=== PATIENT | female | born 1980 | race Caucasian/White ===

== ENCOUNTER 2017-02-25 16:34 | Inpatient (IN) ==
[2017-02-27] MEDS ORDERED: TUBERSOL ID ONE ×2 (10:41→19:05)
[2017-02-27] MEDS: NICODERM PATCH TD SCH (11:35)
[2017-02-27 11:40] LABS: UR AMPHETAMINES QUAL PRESUMPTIVE POSITIVE (NONE DETECT); UR BARBITUATES QUAL NONE DETECTED (NONE DETECT); UR BENZODIAZEPIN QUAL NONE DETECTED (NONE DETECT); UR CANNABINOIDS QUAL NONE DETECTED (NONE DETECT); UR COCAINE QUAL NONE DETECTED (NONE DETECT); UR MDMA QUAL PRESUMPTIVE POSITIVE (NONE DETECT); UR METHADONE QUAL NONE DETECTED (NONE DETECT); UR METHAMPHETAMINE QUAL PRESUMPTIVE POSITIVE (NONE DETECT); UR OPIATES QUAL NONE DETECTED (NONE DETECT); UR OXYCODONE QUAL NONE DETECTED (NONE DETECT); UR PCP QUAL NONE DETECTED (NONE DETECT); UR TCA QUAL NONE DETECTED (NONE DETECT)
[2017-02-27 11:44] LABS: URINE SOURCE CLEAN CATCH
[2017-02-27 11:45] LABS: BILIRUBIN URINE NEGATIVE (NEGATIVE); BLOOD URINE 2+ (NEGATIVE); CLARITY SLIGHTLY CLOUDY (CLEAR); COLOR YELLOW; GLUCOSE URINE NEGATIVE (NEGATIVE); URINE EPITHELIAL CELLS >10 /HPF (<10); URINE WBC <10 /HPF (<10)
[2017-02-27 11:46] LABS: LEUKOCYTES URINE NEGATIVE (NEGATIVE); NITRITE URINE NEGATIVE (NEGATIVE); PROTEIN URINE TRACE mg/dL (NEGATIVE); URINE CULTURE PL NEEDED? YES; UROBILINOGEN URINE NORMAL
[2017-02-27] MEDS ORDERED: PNEUMOVAX 23 IM ONE (12:15)
[2017-02-27] MEDS ORDERED: MOTRIN PO PRN (19:05)
[2017-02-27] MEDS ORDERED: ROBAXIN PO PRN (19:05)
[2017-02-27] MEDS ORDERED: LIBRIUM PO PRN (19:05)
[2017-02-27] MEDS ORDERED: SENOKOT PO PRN (19:05)
[2017-02-27] MEDS ORDERED: BENTYL PO PRN (19:05)
[2017-02-27] MEDS ORDERED: MAALOX PLUS LIQUID PO PRN (19:05)
[2017-02-27] MEDS ORDERED: DULCOLAX PR PRN (19:05)
[2017-02-27] MEDS ORDERED: ZOFRAN IV PRN (19:05)
[2017-02-27] MEDS ORDERED: IMODIUM PO PRN (19:05)
[2017-02-27] MEDS ORDERED: TYLENOL PO PRN (19:05)
[2017-02-27] MEDS ORDERED: SALINE LOCK IV FLUID XX ONE (19:05)
[2017-02-27] MEDS ORDERED: PHENERGAN PO PRN (19:05)
[2017-02-27 19:30] LABS: MANUAL DIFF NEEDED? NO
[2017-02-27] MEDS: SUBOXONE 2 MG/0.5 MG SL SCH (19:51)
[2017-02-27 20:07] LABS: BASO% 0.4 % (0.0-0.8); EOS# 0.15 X1000 (0.0-0.7); EOS% 1.5 % (0.0-10.0); HEMATOCRIT 42.6 % (37.0-47.0); HEMOGLOBIN 14.2 g/dL (12.0-16.0); IMM GRAN# 0.04 X1000 (0.0-0.04); IMM GRAN% 0.4 % (0.0-0.5); LYMPH# 4.25 X1000 (1.2-3.4); LYMPH% 43.8 % (20.5-51.1); MCH 30.5 PG (27-31); MCHC 33.3 g/dL (33-37); MCV 91.6 FL (81-99); MONO# 1.01 X1000 (0.11-0.59); MONO% 10.4 % (1.7-9.3); NEUT% 43.5 % (42.2-75.2); PLT 269 X1000 (130-400); RBC 4.65 XMIL (4.2-5.4)
[2017-02-27 20:15] LABS: AGAP 11; ALBUMIN 4.2 g/dL (3.5-5.0); ALKALINE PHOSPHATASE 87 U/L (32-104); AMYLASE 42 U/L (20-200); BUN 17 mg/dL (8-22); CALCIUM 8.9 mg/dL (8.8-10.2); CHLORIDE 104 mmol/L (98-107); COSMO 281; GOT 12 U/L (10-30); GPT 11 U/L (10-36); LIPASE 67 U/L (13-60); POTASSIUM 3.7 mmol/L (3.5-5.1); SODIUM 140 mmol/L (136-145); TCO2 25 mmol/L (25-35)
[2017-02-27 20:35] LABS: INR 0.85 (0.86-1.15); PROTIME 11.9 Seconds (12.1-15.5)
[2017-02-27 20:36] LABS: PTT PL 27.5 Seconds (22.6-43.9)
[2017-02-27] MEDS: FOLIC ACID PO SCH (23:54)
[2017-02-27] MEDS: VITAMIN B-1 PO SCH (23:54)
[2017-02-28] MEDS: THERA M PLUS PO SCH ×2 (00:33→08:51)
[2017-02-28] MEDS: SUBOXONE 2 MG/0.5 MG SL SCH (06:42)
[2017-02-28] MEDS ORDERED: M.V.I.-12 10 ML, FOLIC ACID 1 MG, MAGNESIUM SULFATE 1 GM, THIAMINE 100 MG in NS 1,000 ML IV ONE (08:00)
[2017-02-28] MEDS: FOLIC ACID PO SCH (08:44)
[2017-02-28] MEDS: NICODERM PATCH TD SCH (08:44)
[2017-02-28] MEDS: VITAMIN B-1 PO SCH (08:45)
[2017-02-28] MEDS ORDERED: THERA M PLUS PO SCH (09:00)
[2017-02-28] MEDS ORDERED: FOLIC ACID PO SCH (09:00)
[2017-02-28] MEDS ORDERED: VITAMIN B-1 PO SCH (09:00)
[2017-02-28] MEDS: SUBOXONE 8 MG/2 MG SL SCH ×2 (09:27→20:58)
--- NOTE | 2017-02-28 09:43 | PROGRESS NOTE ---
DATE: 02/28/2017 SUBJECTIVE: The patient notes she is feeling a little bit better. She is still having lots of muscle aches and cramping. PHYSICAL EXAMINATION: Vital Signs: Reviewed and stable. HEENT: Normocephalic, atraumatic. PERRLA. Neck: Supple. Cardiovascular: Regular rate. Chest: Relatively clear. Abdomen: Soft. Extremities: Moves all extremities. Neurologic: No focal changes. ASSESSMENT: 1. Nausea and vomiting. 2. Abdominal pain. 3. Myalgias. 4. Paresthesias. 5. Paroxysmal sweating. 6. Drug abuse withdrawal and stabilization. PLAN: We will increase Suboxone. Continue counseling. Continue symptomatic medications. Continue stabilization of her opiate withdrawal. Further orders as needed. cc: Thor Garcia MD
[2017-02-28] MEDS ORDERED: CHLORASEPTIC SPRAY MT PRN (21:08)
[2017-02-28] MEDS: AMBIEN PO PRN (21:12)
[2017-03-01] MEDS: FOLIC ACID PO SCH (08:38)
[2017-03-01] MEDS: NICODERM PATCH TD SCH (08:38)
[2017-03-01] MEDS: VITAMIN B-1 PO SCH (08:39)
[2017-03-01] MEDS: THERA M PLUS PO SCH (08:39)
[2017-03-01] MEDS: SUBOXONE 8 MG/2 MG SL SCH ×2 (08:39→20:52)
[2017-03-01] MEDS ORDERED: ROCEPHIN 1 GM/NS 1 GM/50 ML IVPB IV SCH (11:30)
--- NOTE | 2017-03-01 11:52 | PROGRESS NOTE ---
DATE: 03/01/2017 SUBJECTIVE: The patient notes she is still having a significant cough and some occasional shortness of breath. However, notes that her original withdrawal symptoms are much better. She is having much less muscle aches. No more paresthesias and minimal nausea. OBJECTIVE: Vital Signs: Reviewed. Temperature 97 degrees, pulse 82, respiratory rate 18, BP 123/61. General: Patient well developed, well nourished. She is currently in no real respiratory distress. She is awake, alert. HEENT: Normocephalic. Neck: Supple. CV: Regular rate. Chest: Relatively clear. Abdomen: Soft. Extremities: Moves all extremities. ASSESSMENT: 1. Acute bronchitis. Will add Rocephin. 2. Productive cough. We will check a sputum culture. Chest x-ray. 3. Nausea, vomiting resolved. Myalgias resolved. Abdominal pain improved. 4. Drug abuse withdrawal and stabilization. Will continue 80 of Suboxone twice a day. PLAN: Hopefully, patient can discharge home in the next day or two. Will check a chest x-ray and add Rocephin as noted. cc: Thor Garcia MD
--- NOTE | 2017-03-01 16:30 | Diag Imaging Result Document ---
PROCEDURE NAME: CHEST-2 VIEWS - 03/01/2017 CHEST X-RAY 2 VIEWS: COMPARISON: 06/19/2016. FINDINGS: The lungs are normally expanded and clear. Heart size and mediastinal contours are normal. No pneumothorax or pleural effusion. IMPRESSION: Negative exam.
[2017-03-01] MEDS: OMNICEF PO SCH (20:52)
[2017-03-01] MEDS: AMBIEN PO PRN (23:48)
[2017-03-02 08:28] VITALS: BP 106/64
[2017-03-02] MEDS: OMNICEF PO SCH (08:40)
[2017-03-02] MEDS: FOLIC ACID PO SCH (08:40)
[2017-03-02] MEDS: NICODERM PATCH TD SCH (08:40)
[2017-03-02] MEDS: VITAMIN B-1 PO SCH (08:40)
[2017-03-02] MEDS: SUBOXONE 8 MG/2 MG SL SCH (08:40)
[2017-03-02] MEDS: THERA M PLUS PO SCH (08:40)
--- NOTE | 2017-03-02 22:08 | DISCHARGE SUMMARY ---
ADMISSION DATE: 02/27/2017 DISCHARGE DATE: 03/02/2017 DISCHARGE DIAGNOSES: 1. Nausea, vomiting. 2. Abdominal pain. 3. Myalgias. 4. Paresthesias. 5. Opiate abuse withdrawal and stabilization. 6. Acute bronchitis. CONSULTATIONS: None. PROCEDURES: None. BRIEF HOSPITAL COURSE: The patient is a 36-year-old female who was admitted as noted on the HPI. Treated in usual fashion for opiate withdrawal and stabilization. While she was in the hospital she was noted to have some bronchitis type symptoms. She was given Omnicef. Symptoms appeared to be improved. On discharge she is awake, alert. She is in no distress. She is feeling better. DISPOSITION: Patient will be discharged home. Discussed her that she needs to avoid all persons, places, situations which she has been using and abusing in the past. She needs outpatient life counseling as well as drug counseling. She will continue on Suboxone at home. She will follow up outpatient with treatment facility of choice. Will continue Omnicef 14 days. TIME SPENT: 35 minutes was spent in discharge planning and instructions. cc: Thor Garcia MD
--- NOTE | 2017-03-10 08:56 | HISTORY AND PHYSICAL ---
CHIEF COMPLAINT: Nausea and vomiting. HISTORY OF PRESENT ILLNESS: This patient is a 36-year-old female who presented to [facility] secondary to opiate withdrawal symptoms. Notes that she has been having increased abdominal pain, nausea, vomiting, decreased oral intake. Symptoms continued to be severe. SOCIAL HISTORY: Patient is currently unemployed. She is . She has 1 child. PAST SUBSTANCE ABUSE HISTORY: Patient does not drink. Began using opiates at age 14. Currently takes 3-4 Roxicodone 20 mg pills a day. She started smoking as early as age 14. Currently smokes approximately a pack a day. REVIEW OF SYSTEMS: CINA score is 15 secondary to frequent yawning, watery eyes, runny nose, occasional paresthesias, frequent changes in temperature, and paroxysmal sweating, severe muscle aches, occasional shivering, frequent nausea with occasional dry heaves. Denies any chest pain, palpitations. Denies any fevers or chills. Denies any dysuria, frequency, urgency. Denies any hesitancy, polyuria, polydipsia. Denies any skin rashes, melena, hematochezia. PAST MEDICAL HISTORY: Depression and anxiety. She was in a treatment facility for opiate withdrawal in 2014 and again in 2016. Stayed sober for several weeks and then began falling back into bad habits. MEDICATIONS: None. ALLERGIES: None. FAMILY HISTORY: Noncontributory. PHYSICAL EXAMINATION: VITAL SIGNS: Reviewed and stable. She is afebrile. Pulse is 90, respiratory rate 20. GENERAL: Patient is well-developed, well-nourished. She is currently in no real respiratory distress. She is pleasant to talk with. HEENT: Normocephalic, atraumatic. JOSE ANTONIO. NECK: Supple. CV: Regular rate and rhythm. CHEST: Relatively clear. ABDOMEN: Soft. EXTREMITIES: Moves all extremities. NEUROLOGIC: No focal neurological changes. SKIN: Warm and dry. No rashes. DIAGNOSTIC DATA: Labs pending. ASSESSMENT: 1. Nausea and vomiting. 2. Abdominal pain. 3. Tremors. 4. Myalgias. 5. Paresthesias. 6. Paroxysmal sweating. 7. Opiate abuse, withdrawal, and stabilization. PLAN: Admit patient to the hospital for stabilization of her opiate withdrawal symptoms. We will begin counseling. We will place her on Suboxone. Further orders as needed. cc: Thor Garcia MD
== END 2017-03-02 13:26 | disposition home or self-care (01) ==
LOC: P.DIRADM 02-27 10:11 → P.MEDSURG 02-27 10:31
PROVIDERS: ADMIT Family Medicine; ATTEND Family Medicine